=== PATIENT | female | born 1975 | race Caucasian/White ===

== ENCOUNTER → 2016-08-09 | Outpatient (CLI) | payer BC ==
--- NOTE | 2016-08-11 08:05 | US ---
EXAMINATION TYPE: US transvaginal DATE OF EXAM: 08/09/2016 1:45 PM COMPARISON: NONE CLINICAL HISTORY: N92.1 METRORRHAGIA UNRELATED TO MENSTRUAL CYCLE. TECHNIQUE: Transvaginal (TV), as bladder was not full and patient stated scheduled for work today an d chose TV rather than TAUS Date of LMP: 07/08/2016 EXAM MEASUREMENTS: Uterus: 8.8 x 6.1 x 4.3cm Endometrial Stripe: 1.3cm Right Ovary: 4.3 x 3.7 x 3.6cm Left Ovary: 2.5 x 2.5 x 1.8cm Findings: 1. Uterus: Anteverted C Section scar is noted in ANG. Complex Nabothian cyst is present in CX = 0. 5 x 0.4 x 0.4cm. 2. Endometrium: unable to correlate thickness with LMP as patient stated has been on menses continu ally since 07/03/2016 3. Right Ovary: enlarged with large simple cyst = 3.5 x 3.0 x 3.2cm 4. Left Ovary: multifollicular wit largest = 1.0 x 1.1 x 0.7cm Spectral, color and waveform Doppler imaging shows good arterial and venous flow within the ovaries ; there is no evidence for ovarian torsion. 5. Bilateral Adnexa: wnl 6. Posterior cul-de-sac: wnl IMPRESSION: 1. Limited assessment of the endometrium is discussed above. Measures 1.3 cm and appears thickened. C orrelate clinically for endometrial pathology. 2. Simple appearing right ovarian cyst measuring 3.5 cm.
== END | disposition home or self-care (01) ==
LOC: RADUSWWP 13:03
PROVIDERS: ATTEND Family Medicine
DX: N83.201 Unspecified ovarian cyst, right side (principal); N92.1 Excessive and frequent menstruation with irregular cycle
CPT/HCPCS: 76830

== ENCOUNTER 2016-08-20 17:44 | Emergency (ER) | payer BC, OTHER ==
[2016-08-20 18:13] VITALS: BP 138/93; PULSE 78; RESP 17; TEMP 98.5
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
--- NOTE | 2016-08-20 19:22 | XR ---
EXAMINATION TYPE: XR chest 2V DATE OF EXAM: 08/20/2016 6:49 PM COMPARISON: 10/26/2015 HISTORY: Chest pain TECHNIQUE: Frontal and lateral views of the chest are obtained. FINDINGS: Heart and mediastinum are normal. Lungs are clear. Costophrenic angles are clear. There ar e no hilar masses. Bony thorax is intact. IMPRESSION: Normal chest. No change.
--- NOTE | 2016-08-20 19:23 | XR ---
EXAMINATION TYPE: XR foot limited RT DATE OF EXAM: 08/20/2016 6:49 PM COMPARISON: NONE HISTORY: Injury TECHNIQUE: 2 views FINDINGS: I see no fracture nor dislocation. Metatarsals are intact. There is a small Achilles calcan eal spur. There are no erosions. IMPRESSION: Mild calcaneal spurring. Otherwise negative exam.
== END 2016-08-20 19:32 | disposition home or self-care (01) ==
LOC: EC 17:44
DX: S20.219A Contusion of unspecified front wall of thorax, initial encounter (principal); W22.8XXA Striking against or struck by other objects, initial encounter; S93.501A Unspecified sprain of right great toe, initial encounter; W31.82XA Contact with other commercial machinery, initial encounter; Y99.0 Civilian activity done for income or pay; F32.9 Major depressive disorder, single episode, unspecified; Z79.899 Other long term (current) drug therapy; Z86.14 Personal history of Methicillin resistant Staphylococcus aureus infection; F17.200 Nicotine dependence, unspecified, uncomplicated; Z88.0 Allergy status to penicillin
CPT/HCPCS: 71020; 99283

== ENCOUNTER 2016-08-30 16:19 | Emergency (ER) | payer BC ==
[2016-08-30 16:27] VITALS: BP 132/85; PULSE 76; RESP 17; TEMP 97.2
[2016-08-30] MEDS ORDERED: ONDANSETRON ODT 4 MG TAB PO STA (17:04)
--- NOTE | 2016-08-30 17:09 | ED ---
General Adult HPI - General Chief complaint: Nausea/Vomiting/Diarrhea Stated complaint: Nausea Time Seen by Provider: 08/30/16 16:50 Source: patient, RN notes reviewed Mode of arrival: ambulatory Limitations: no limitations - History of Present Illness Initial comments: This is a 40-year-old female who presents with nausea that started last night. Patient states she's had 4 episodes of emesis since last night. Patient states her has the same symptoms at home. Patient has not had an episode of emesis since. Patient denies any hematemesis or hematochezia or hematuria. Patient denies any dysuria. Patient states she's had a mild case of diarrhea once since last night. Patient denies any abdominal pain. Patient denies any chance of being as she has had a tubal ligation. Patient denies any cough, congestion, or sore throat but admits to a mild headache. Patient attributes her headache to a lack of caffeine today. Patient has been drinking fluids. Patient denies any recent fever, chills, shortness breath, chest pain, back pain, numbness, tingling, hematuria, or visual changes, or any other complaints. - Related Data Home Medications Medication Instructions Recorded Confirmed ARIPiprazole [Abilify] 2.5 mg PO DAILY 09/13/14 08/20/16 Citalopram Hydrobromide [CeleXA] 20 mg PO DAILY 09/13/14 08/20/16 Dextroamphetamine/Amphetamine 30 mg PO BID 08/20/16 08/20/16 [Adderall] Previous Rx's Medication Instructions Recorded Ibuprofen [Motrin] 600 mg PO Q6HR PRN #20 tab 08/20/16 Ondansetron Odt [Zofran Odt] 4 mg PO Q8H 3 Days 08/30/16 Sulfamethox-Tmp 800-160Mg [Bactrim 1 tab PO Q12HR #28 tab 08/30/16 DS 800-160 mg] Allergies Allergy/AdvReac Type Severity Reaction Status Date / Time Penicillins AdvReac Itching Verified 08/20/16 18:21 Review of Systems ROS Statement: Those systems with pertinent positive or pertinent negative responses have been documented in the HPI. ROS Other: All systems not noted in ROS Statement are negative. Past Medical History Past Medical History: No Reported History History of Any Multi-Drug Resistant Organisms: MRSA Date of last positivie culture/infection: 2009 MDRO Source:: neck Past Surgical History: Section Past Psychological History: Bipolar, Depression Smoking Status: Current every day smoker Past Alcohol Use History: Occasional Past Drug Use History: None Reported General Exam - General Exam Comments Initial Comments: General: The patient is awake and alert, in no distress, and does not appear acutely ill. Eye: Pupils are equal, round and reactive to light, extra-ocular movements are intact. No nystagmus. There is normal conjunctiva bilaterally. No signs of icterus. Ears: TMs pink and pearly with intact cone of light bilaterally. Normal external ear canals Nose: Nasal turbinates pink and moist Mouth and throat: There are moist mucous membranes and no oral lesions. Neck: The neck is supple, there is no tenderness or JVD. Cardiovascular: There is a regular rate and rhythm. No murmur, rub or gallop is appreciated. Respiratory: Lungs are clear to auscultation, respirations are non-labored, breath sounds are equal. No wheezes, stridor, rales, or rhonchi. Gastrointestinal: Mild discomfort to palpation of the suprapubic area. Soft, non -distended, abdomen without masses or organomegaly noted. There is no rebound or guarding present. No CVA tenderness. Bowel sounds are unremarkable. Musculoskeletal: Normal ROM, no tenderness. Strength 5/5. Sensation intact. Radial Pulses equal bilaterally 2+. Neurological: A&O x 3. CN II-XII intact, There are no obvious motor or sensory deficits. Coordination appears grossly intact. Speech is normal. Skin: Skin is warm and dry and no rashes or lesions are noted. Psychiatric: Cooperative, appropriate mood & affect, normal judgment. Limitations: no limitations Course Vital Signs 08/30/16 16:24 Temperature 97.2 F L Pulse Rate 76 Respiratory 17 Rate Blood Pressure 132/85 O2 Sat by Pulse 97 Oximetry Medical Decision Making - Medical Decision Making This is an 31yo female who presents with nausea that started last night. On physical exam patient is afebrile in the EC. Mild discomfort to palpation of the suprapubic area. Abdomen is soft, nondistended with no CVA tenderness. No rebound guarding or rigidity. A UA was checked. An influenza was checked and was negative. Patient was given Zofran in the EC today. Patient was feeling much better after Zofran. Urinalysis was positive for urinary tract infection. Blood was noted in the urine and with further questioning patient states she is currently finishing up her menstrual cycle. Patient denies any flank pain or back pain. Discussed that patient would be put on a course of Bactrim. I discussed that patient should drink plenty of fluids. Discussed return parameters. Tylenol or Motrin for any pain. Discussed patient will be given a prescription for Zofran. Discussed that patient should follow up with PCP in one to 2 days or return to the EC for any worsening symptoms or for any further concerns. Patient was receptive to this plan and patient will be discharged home. - Lab Data Lab Results 08/30/16 08/30/16 Range/Units 17:04 17:04 Urine Color Yellow Urine Appearance Cloudy H (Clear) Urine pH 7.0 (5.0-8.0) Ur Specific [place] 1.016 (1.001-1.035) Urine Protein Negative (Negative) Urine Glucose (UA) Negative (Negative) Urine Ketones Negative (Negative) Urine Blood Moderate H (Negative) Urine Nitrate Negative (Negative) Urine Bilirubin Negative (Negative) Urine Urobilinogen <2.0 (<2.0) mg/dL Ur Leukocyte Esterase Large H (Negative) Urine RBC 5 (0-5) /hpf Urine WBC 40 H (0-5) /hpf Ur Squamous Epith Cells 9 H (0-4) /hpf Urine Sperm Rare (None) /hpf Influenza Type A RNA Not Detected (Not Detectd) Influenza Type B (PCR) Not Detected (Not Detectd) Disposition Clinical Impression: Nausea & vomiting, Urinary tract infection Disposition: HOME SELF-CARE Condition: Good Instructions: Acute Nausea and Vomiting (ED), Urinary Tract Infection in Women (ED) Additional Instructions: Please use Zofran as prescribed. Please finish entire course of antibiotics. Please drink plenty of fluids. Please follow-up with family doctor in the next 2 days of symptoms have not improved. Please return to emergency room if the symptoms increase or worsen or for any other concerns. Prescriptions: Ondansetron Odt [Zofran Odt] 4 mg PO Q8H 3 Days Sulfamethox-Tmp 800-160Mg [Bactrim DS 800-160 mg] 1 tab PO Q12HR #28 tab Referrals: Josh Lau MD [Primary Care Provider] - 1-2 days Time of Disposition: 17:58
[2016-08-30 17:47] LABS: Appearance,Urine Cloudy (Clear); Bilirubin,Urine Negative (Negative); Glucose,Urine (UA) Negative (Negative); Ketones,Urine Negative (Negative); Leukocyte Esterase,Urine Large (Negative); Nitrite,Urine Negative (Negative); Particle Count 4544; Protein,Urine Negative (Negative); RBC,Urine 5 /hpf (0-5); Specific Gravity,Urine 1.016 (1.001-1.035); Sperm,Urine Rare /hpf; Squamous Epithelial Cell,Urine 9 /hpf (0-4); UA Billing (MACRO vs. MICRO) MICRO; Urobilinogen,Urine <2.0 mg/dL (<2.0); WBC,Urine 40 /hpf (0-5)
== END 2016-08-30 18:06 | disposition home or self-care (01) ==
LOC: EC 16:19
DX: N39.0 Urinary tract infection, site not specified (principal); R11.2 Nausea with vomiting, unspecified; F31.9 Bipolar disorder, unspecified; F17.200 Nicotine dependence, unspecified, uncomplicated; Z88.0 Allergy status to penicillin; Z86.14 Personal history of Methicillin resistant Staphylococcus aureus infection; Z79.899 Other long term (current) drug therapy
CPT/HCPCS: 81001; 87086; 87502; 99284

== ENCOUNTER 2016-09-09 15:18 | Observation (INO) | payer BC ==
[2016-09-09 16:44] LABS: Anion Gap 10 mmol/L; Blood Urea Nitrogen 14 mg/dL (7-17); Calcium 9.2 mg/dL (8.4-10.2); Carbon Dioxide 28 mmol/L (22-30); Chloride 104 mmol/L (98-107); Glucose 78 mg/dL (74-99); Non-African American GFR(MDRD) >60 (>60 ml/min/1.73 sqM); Sodium 142 mmol/L (137-145)
[2016-09-09 16:47] LABS: Basophils % (A) 0 %; CH 31.2; Eosinophils # (A) 0.3 k/uL (0-0.7); Eosinophils % (A) 3 %; HCT 39.7 % (34.0-46.0); Luc # (Auto) 0.11; Luc % (Auto) 1; Lymphocytes # (A) 1.7 k/uL (1.0-4.8); Lymphocytes % (A) 20 %; MCH 31.1 pg (25.0-35.0); MCHC 32.7 g/dL (31.0-37.0); MCV 95.3 fL (80.0-100.0); Mean Platelet Volume 8.3; Monocytes # (A) 0.4 k/uL (0-1.0); Monocytes % (A) 4 %; Neutrophils # (A) 6.1 k/uL (1.3-7.7); Neutrophils % (A) 71 %; RBC 4.16 m/uL (3.80-5.40); RDW 14.1 % (11.5-15.5); WBC 8.6 k/uL (3.8-10.6); WBC (Perox) 9.14
[2016-09-09 17:09] VITALS: BMI 32.3
[2016-09-09] MEDS ORDERED: ACETAMINOPHEN TAB 500 MG TAB PO PRN (19:33)
[2016-09-09] MEDS: HYDROmorphone 1 MG/ML 1 ML SYRINGE IVP PRN (21:10)
[2016-09-09] MEDS: NICOTINE 14MG/24HR PATCH TRANSDERM SCH (21:39)
[2016-09-09] MEDS: ARIPiprazole 5 MG TAB PO SCH (22:34)
[2016-09-09] MEDS: CITALOPRAM HYDROBROMIDE 20 MG TAB PO SCH (22:34)
[2016-09-10] MEDS: HYDROcodone/APAP 5-325MG 1 EACH TAB PO PRN ×2 (00:40→20:21)
[2016-09-10] MEDS: HYDROmorphone 1 MG/ML 1 ML SYRINGE IVP PRN ×2 (03:04→08:51)
[2016-09-10] MEDS: CITALOPRAM HYDROBROMIDE 20 MG TAB PO SCH ×2 (08:51→20:08)
[2016-09-10] MEDS: NICOTINE 14MG/24HR PATCH TRANSDERM SCH (08:51)
[2016-09-10] MEDS ORDERED: NON-FORMULARY DRUG (Dextroamphetamine/Amphetamine [Adderall] 30 MG) PO SCH (09:00)
[2016-09-10 09:18] LABS: Basophils % (A) 1 %; CH 30.8; CHCM 32.8; Eosinophils # (A) 0.2 k/uL (0-0.7); Eosinophils % (A) 4 %; HCT 35.6 % (34.0-46.0); HDW 3.01; HGB 11.6 gm/dL (11.4-16.0); Luc % (Auto) 2; Lymphocytes % (A) 37 %; MCH 30.8 pg (25.0-35.0); MCHC 32.6 g/dL (31.0-37.0); MCV 94.6 fL (80.0-100.0); Monocytes # (A) 0.2 k/uL (0-1.0); Monocytes % (A) 4 %; Neutrophils # (A) 2.8 k/uL (1.3-7.7); Neutrophils % (A) 52 %; RBC 3.76 m/uL (3.80-5.40); RDW 14.2 % (11.5-15.5); WBC 5.3 k/uL (3.8-10.6); WBC (Perox) 5.35
[2016-09-10 09:41] LABS: ALT 34 U/L (9-52); AST 22 U/L (14-36); Alkaline Phosphatase 49 U/L (38-126); Anion Gap 9 mmol/L; Blood Urea Nitrogen 14 mg/dL (7-17); Calcium 8.1 mg/dL (8.4-10.2); Carbon Dioxide 26 mmol/L (22-30); Chloride 104 mmol/L (98-107); Glucose 125 mg/dL (74-99); Non-African American GFR(MDRD) >60 (>60 ml/min/1.73 sqM); Potassium 3.2 mmol/L (3.5-5.1); Sodium 139 mmol/L (137-145); Total Bilirubin 0.3 mg/dL (0.2-1.3); Total Protein 5.7 g/dL (6.3-8.2)
--- NOTE | 2016-09-10 14:44 | P.PN ---
Subjective 40-year-old female being seen in the observation unit. Patient was a direct admission from Dr. Sheppard's office on the . Patient states is being seen in the office for "intense abdominal pain points to the bilateral lower abdomen " also having heavy menses with blood clots onset for the past several months" patient denies any prior episodes. States that she was seen in the office and advised to be admitted and worked up for the above-mentioned symptoms. Currently the PeriPad is dry no evidence of vaginal bleeding. Patient states the vaginal bleeding occurs when she stands up passing clots causing intense cramping interfering with work" hemoglobin on admission 13 repeat hemoglobin 11.6 patient also states that she had an ultrasound within the last month for the above-mentioned symptoms. Patient has poor past medical history recall. Patient's past medical history significant for bipolar depressive disorder. Patient states the pain in her abdomen is unbearable. Reviewing computerized record indicates that in August 09 2016 patient did have an ultrasound reviewing the report it showed a simple appearing right ovarian cyst measuring 3.5 cm and the limited assessment of the endometnium Objective - Vital Signs Vital signs: Vital Signs Temp 97.6 F 09/10/16 07:42 Pulse 59 L 09/10/16 12:29 Resp 18 09/10/16 12:29 BP 107/70 09/10/16 07:42 Pulse Ox 96 09/10/16 07:42 Intake & Output 09/09/16 09/10/16 09/10/16 18:59 06:59 18:59 Intake Total 480 Balance 480 Weight 85.5 kg Intake: Oral 480 Other: # Voids 1 2 - Exam GENERAL APPEARANCE: 40-year-old female patient is alert, oriented, in no acute distress. VITAL SIGNS: Reviewed HEENT: Head is normocephalic and atraumatic. Pupils are equal and reactive. The nares are patent. Oropharynx is clear without lesions. NECK: Supple without lymphadenopathy. Traches midline. HEART: S1, S2. Regular rate and rhythm. Denying chest pain LUNGS: No crackles or wheezes are heard. Adequate air movement ABDOMEN: Soft, nontender, nondistended with good bowel sounds. No peritoneal signs. No palpable organomegaly or masses. No active vaginal bleeding noted no frequent stooling denies any burning on urination not able to elicit any facial grimacing with palpitation to the abdominal wall EXTREMITIES: Normal skin color and turgor. No cyanosis, rash, ulceration, clubbing or edema. Radial pedal pulses are 2/4 bilaterally. NEUROLOGICAL: No focal deficits. Strength and sensation are grossly intact. - Labs CBC & Chem 7: 09/10/16 09:01 09/10/16 09:01 Labs: Abnormal Lab Results - Last 24 Hours (Table) 09/10/16 09/10/16 Range/Units 09:01 09:01 RBC 3.76 L (3.80-5.40) m/uL Potassium 3.2 L (3.5-5.1) mmol/L Glucose 125 H (74-99) mg/dL Calcium 8.1 L (8.4-10.2) mg/dL Total Protein 5.7 L (6.3-8.2) g/dL Albumin 3.2 L (3.5-5.0) g/dL Assessment and Plan Plan: Impression Present on admission abdominal pain with vaginal bleeding unclear etiology Depressive anxiety disorder nonspecified A mood disorder suspect bipolar 08/09/2016 vaginal ultrasound done showing a simple appearing right ovarian cyst measuring 3.5 cm Current Every day smoker Obesity BMI 32 Plan Surgical consultation pending [employer] vaginal bleeding pending Resume home meds as appropriate Follow up on the ultrasound of the abdomen pending Continue with the nicotine patch as ordered Patient's been advised to stop smoking cigarettes Further recommendations pending The above dictated assessment and findings were discussed with dr silver Soto and the plan of care have been dictated as directed. Anel Garibay nurse practitioner acting as a scribe for dr sheppard
[2016-09-10] MEDS ORDERED: HYDROmorphone 1 MG/ML 1 ML SYRINGE IVP PRN (14:45)
[2016-09-10] MEDS ORDERED: SODIUM CHLORIDE 0.9% 1,000 ML IV SCH (14:45)
--- NOTE | 2016-09-10 15:27 | P.HPIM ---
History of Present Illness H&P Date: 09/09/16 Chief Complaint: Abdominal pain vaginal bleeding heavy menses A 40-year-old female who was a direct admission from Dr. Sheppard's office on September 09. Patient was being seen in the office for chief complaint of developing abdominal pain bilateral lower quadrants with heavy menses onset 2 months prior reportedly has become more symptomatic interfering with activities of daily life. Patient stated that she had an vaginal ultrasound done in the outpatient setting as part of a workup for the heavy menses this was done in July 2016. Patient is not certain of what the findings were. Reviewing computerized medical records indicate on August 09 2016 ultrasound vaginally showed a simple appearing right ovarian cyst measuring 3.5 cm. Patient also states that she has not had prior episodes of having heavy vaginal. Patient gives no significant past surgical history when questioning. Additionally patient states she has not been to an [employer]. Her last was 8 years ago according to the patient was uneventful. Patient states prior to the last several months her periods had been normal with a normal vaginal flow patient states that she stands up she feels like she could pass clots with a lot of vaginal bleeding hemoglobin on admission was 13. Review of Systems Essentially unremarkable except as mentioned in the present illness Past Medical History Past Medical History: No Reported History Additional Past Medical History / Comment(s): VAGINAL BLEEDING SINCE , ULTRASOUND DONE AND SHOWED CYST History of Any Multi-Drug Resistant Organisms: MRSA Date of last positivie culture/infection: 2009 MDRO Source:: neck Past Surgical History: Section Past Anesthesia/Blood Transfusion Reactions: No Reported Reaction Past Psychological History: Bipolar, Depression Smoking Status: Current every day smoker Past Alcohol Use History: Occasional Past Drug Use History: None Reported Medications and Allergies Home Medications Medication Instructions Recorded Confirmed Type ARIPiprazole [Abilify] 2.5 mg PO HS 09/13/14 09/09/16 History Citalopram Hydrobromide [CeleXA] 20 mg PO BID 09/13/14 09/09/16 History Dextroamphetamine/Amphetamine 30 mg PO BID 08/20/16 09/09/16 History [Adderall] Allergies Allergy/AdvReac Type Severity Reaction Status Date / Time Penicillins Allergy Itching Verified 09/09/16 20:11 Physical Exam Vitals: Vital Signs Temp Pulse Resp BP Pulse Ox 09/10/16 12:29 59 L 18 09/10/16 08:00 59 L 18 09/10/16 07:42 97.6 F 59 L 18 107/70 96 09/10/16 05:29 16 09/10/16 03:55 97.8 F 53 L 16 114/68 96 09/10/16 00:00 16 09/09/16 19:53 98.3 F 81 16 124/71 97 09/09/16 15:51 97.8 F 81 18 137/100 100 Intake and Output 09/10/16 09/10/16 09/10/16 06:59 14:59 22:59 Intake Total 480 Balance 480 Intake: Oral 480 Other: # Voids 1 2 GENERAL APPEARANCE: 40-year-old female patient is alert, oriented, in no acute distress. Resting in bed appears well-hydrated nontoxic VITAL SIGNS: Reviewed afebrile HEENT: Head is normocephalic and atraumatic. Pupils are equal and reactive. The nares are patent. Oropharynx is clear without lesions. NECK: Supple without lymphadenopathy. Traches midline. HEART: S1, S2. Regular rate and rhythm. No murmur noted denying chest pain LUNGS: No crackles or wheezes are heard. Adequate air movement bilaterally on room air sats are 96% no cough ABDOMEN: Soft, obese nontender, nondistended with good bowel sounds. No peritoneal signs. No palpable organomegaly or masses. No facial grimacing with palpitation to the abdominal wall Genitals no vaginal bleeding noted no swelling noted no vaginal discharge noted EXTREMITIES: Normal skin color and turgor. No cyanosis, rash, ulceration, clubbing or edema. Radial pedal pulses are 2/4 bilaterally. NEUROLOGICAL: No focal deficits. Strength and sensation are grossly intact. Results CBC & Chem 7: 09/10/16 09:01 09/10/16 09:01 Labs: Abnormal Lab Results - Last 24 Hours (Table) 09/10/16 09/10/16 Range/Units 09:01 09:01 RBC 3.76 L (3.80-5.40) m/uL Potassium 3.2 L (3.5-5.1) mmol/L Glucose 125 H (74-99) mg/dL Calcium 8.1 L (8.4-10.2) mg/dL Total Protein 5.7 L (6.3-8.2) g/dL Albumin 3.2 L (3.5-5.0) g/dL Thrombosis Risk Factor Assmnt - Choose All That Apply Any of the Below Risk Factors Present?: No Other Risk Factors: No Other congenital or acquired thrombophilia - If yes, enter type in comment: No Thrombosis Risk Factor Assessment Level: Very Low Risk Assessment and Plan Plan: Impression Present on admission bilateral lower abdominal pain with vaginal bleeding unclear etiology Depressive anxiety disorder nonspecified A mood disorder suspect bipolar 08/09/2016 vaginal ultrasound done showing a simple appearing right ovarian cyst measuring 3.5 cm Current Every day smoker Obesity BMI 32 Plan Surgical consultation pending [employer] vaginal bleeding pending Resume home meds as appropriate Follow up on the ultrasound of the abdomen pending Continue with the nicotine patch as ordered Patient's been advised to stop smoking cigarettes Further recommendations pending The above dictated assessment and findings were discussed with dr silver Soto and the plan of care have been dictated as directed. Anel Garibay nurse practitioner acting as a scribe for dr sheppard
--- NOTE | 2016-09-10 15:30 | P.GSCN ---
History of Present Illness Consult date: 09/09/16 Reason for Consult: Abdominal pain Requesting physician: Josh Lau History of present illness: Patient is a 40-year-old female referred from Dr. Josh Lau for abdominal pain. Patient states that she's had right lower quadrant pain for the last 3 months increased in intensity over the last 4-5 days. Patient describes pain as sharp, intermittent, and radiating to her back. Patient currently rates pain 6 out of 10. Patient also reports abnormal vaginal bleeding 3 months. Patient states that she underwent a transvaginal ultrasound and Dr. Lau's office on August 09 that showed evidence of a right ovarian cyst with evidence of thickened lining of the uterus. Patient was instructed to follow-up with [facility] but states she has been unable to book an appointment. Patient denies recent fevers, chills, nausea, vomiting, shortness of breath, or chest pain. Patient states she has had 2 C-sections and tubal ligation in the past. Patient denies constipation or diarrhea. No history of melena or hematochezia. Afebrile. Blood pressure 107/70. No evidence of leukocytosis. Hemoglobin stable at 11.6. Past Medical History Past Medical History: No Reported History Additional Past Medical History / Comment(s): VAGINAL BLEEDING SINCE , ULTRASOUND DONE AND SHOWED CYST History of Any Multi-Drug Resistant Organisms: MRSA Year Discovered:: 2009 MDRO Source:: neck Past Surgical History: Section Past Anesthesia/Blood Transfusion Reactions: No Reported Reaction Past Psychological History: Bipolar, Depression Smoking Status: Current every day smoker Past Alcohol Use History: Occasional Past Drug Use History: None Reported Medications and Allergies Home Medications Medication Instructions Recorded Confirmed Type ARIPiprazole [Abilify] 2.5 mg PO HS 09/13/14 09/09/16 History Citalopram Hydrobromide [CeleXA] 20 mg PO BID 09/13/14 09/09/16 History Dextroamphetamine/Amphetamine 30 mg PO BID 08/20/16 09/09/16 History [Adderall] Allergies Allergy/AdvReac Type Severity Reaction Status Date / Time Penicillins Allergy Itching Verified 09/09/16 20:11 Surgical - Exam Vital Signs Temp Pulse Resp BP Pulse Ox 97.8 F 81 18 137/100 100 09/09/16 15:51 09/09/16 15:51 09/09/16 15:51 09/09/16 15:51 09/09/16 15:51 GENERAL: Pt awake and alert, lying in bed, well-nourished, and in no acute distress. HEAD: Atraumatic, normocephalic. EYES: Pupils equal and round. Sclera anicteric, conjunctiva are normal. ENT: Moist mucous membranes. NECK: Supple without lymphadenopathy or JVD. LUNGS: Breath sounds clear to auscultation bilaterally. No wheezes, rales, or rhonchi. HEART: Heart S1, S2, no S3 or S4. Regular rate and rhythm. No murmurs, rubs or gallops. ABDOMEN: Soft, right lower quadrant tenderness, nondistended, normoactive bowel sounds. No peritoneal signs. EXTREMITIES: Palpable peripheral pulses. No edema. No calf tenderness. NEUROLOGICAL: Pt oriented x 3. No focal deficits. Strength and sensation grossly intact. PSYCH: Normal mood, normal affect. SKIN: Warm, dry, intact. Normal turgor. Results - Labs 09/10/16 09:01 09/10/16 09:01 Abnormal Lab Results - Last 24 Hours (Table) 09/10/16 09/10/16 Range/Units 09:01 09:01 RBC 3.76 L (3.80-5.40) m/uL Potassium 3.2 L (3.5-5.1) mmol/L Glucose 125 H (74-99) mg/dL Calcium 8.1 L (8.4-10.2) mg/dL Total Protein 5.7 L (6.3-8.2) g/dL Albumin 3.2 L (3.5-5.0) g/dL Diabetes panel 09/09/16 09/10/16 Range/Units 16:20 09:01 Sodium 142 139 (137-145) mmol/L Potassium 4.0 3.2 L (3.5-5.1) mmol/L Chloride 104 104 (98-107) mmol/L Carbon Dioxide 28 26 (22-30) mmol/L BUN 14 14 (7-17) mg/dL Creatinine 0.61 0.56 (0.52-1.04) mg/dL Glucose 78 125 H (74-99) mg/dL Calcium 9.2 8.1 L (8.4-10.2) mg/dL AST 22 (14-36) U/L ALT 34 (9-52) U/L Alkaline Phosphatase 49 (38-126) U/L Total Protein 5.7 L (6.3-8.2) g/dL Albumin 3.2 L (3.5-5.0) g/dL Calcium panel 09/09/16 09/10/16 Range/Units 16:20 09:01 Calcium 9.2 8.1 L (8.4-10.2) mg/dL Albumin 3.2 L (3.5-5.0) g/dL Pituitary panel 09/09/16 09/10/16 Range/Units 16:20 09:01 Sodium 142 139 (137-145) mmol/L Potassium 4.0 3.2 L (3.5-5.1) mmol/L Chloride 104 104 (98-107) mmol/L Carbon Dioxide 28 26 (22-30) mmol/L BUN 14 14 (7-17) mg/dL Creatinine 0.61 0.56 (0.52-1.04) mg/dL Glucose 78 125 H (74-99) mg/dL Calcium 9.2 8.1 L (8.4-10.2) mg/dL Adrenal panel 09/09/16 09/10/16 Range/Units 16:20 09:01 Sodium 142 139 (137-145) mmol/L Potassium 4.0 3.2 L (3.5-5.1) mmol/L Chloride 104 104 (98-107) mmol/L Carbon Dioxide 28 26 (22-30) mmol/L BUN 14 14 (7-17) mg/dL Creatinine 0.61 0.56 (0.52-1.04) mg/dL Glucose 78 125 H (74-99) mg/dL Calcium 9.2 8.1 L (8.4-10.2) mg/dL Total Bilirubin 0.3 (0.2-1.3) mg/dL AST 22 (14-36) U/L ALT 34 (9-52) U/L Alkaline Phosphatase 49 (38-126) U/L Total Protein 5.7 L (6.3-8.2) g/dL Albumin 3.2 L (3.5-5.0) g/dL Assessment and Plan Plan: Impression: 1. Right lower quadrant abdominal pain. 2. History of dysmenorrhea for 3 months. 3. History of right ovarian cyst per patient history. Plan: 1. Continue to monitor patient. Await [facility] input. Patient is on a surgical candidate at this time. The above impression and plan have been discussed and directed by Dr. Jackson. Hugo NARVAEZ acting as scribe for Dr. Jackson.
--- NOTE | 2016-09-10 17:51 | US ---
EXAMINATION TYPE: US abdomen complete DATE OF EXAM: 09/10/2016 3:47 PM COMPARISON: NONE CLINICAL HISTORY: 40-year-old female with abdominal pain. TECHNIQUE: Multiple sonographic images of the abdomen were obtained. FINDINGS: Liver Length: 17.8 cm Gallbladder Wall: 0.3 cm CBD: 4.5 mm Spleen: 13.9 cm Right Kidney: 11.3 x 5.2 x 4.5 cm Left Kidney: 11.0 x 5.6 x 5.7 cm Pancreas: echogenic, tail not seen due to overlying bowel gas, main pancreatic duct- 2.2 mm Liver: Mildly enlarged and somewhat echogenic. No focal lesion seen. Gallbladder: No abnormal gallbladder distention, wall thickening, pericholecystic fluid, or shadowin g calculi. Evidence for sonographic Vuong's sign: neg CHD: Within normal limits. Spleen: Borderline enlarged. Right Kidney: There is mild pelvicaliectasis. Left Kidney: There is mild pelvicaliectasis. Upper IVC: Within normal limits. Abd Aorta: mid Aorta not seen due to overlying bowel gas IMPRESSION: 1. Mild hepatomegaly and suspected mild hepatic steatosis. Correlate with LFTs, lipid profile, and pa tient risk factors. 2. Mild bilateral pelvicaliectasis/hydronephrosis.
--- NOTE | 2016-09-10 17:54 | US ---
EXAMINATION TYPE: US pelvis complete transvag DATE OF EXAM: 09/10/2016 5:19 PM COMPARISON: on PACS CLINICAL HISTORY: 40-year-old female with abdominal pain and history of a right ovarian simple cyst, irregular bleeding. Date of LMP: 05/2016, TECHNIQUE: Transvaginal (TV) and Transabdominal (TA) FINDINGS: Uterus: Anteverted measuring 9.0 x 4.4 x 3.9 cm. A 6 mm cervical nabothian cyst is demonstrated. Endometrial Stripe: 0.9 cm, within normal limits. Right Ovary: 4.1 x 2.5 x 2.1 cm for a volume of 11.0 mL with follicular change. Left Ovary: 3.0 x 2.0 x 1.6 cm for a volume of 5.0 mL with follicular change. There is trace right adnexal free fluid adjacent to the ovary. Otherwise, no evident adnexal abnormality or cul-de-sac free fluid. IMPRESSION: 1. Endometrial stripe now measuring 9 mm, within normal limits. 2. Follicular change in both ovaries. Previous 3.5 cm right ovarian cyst has resolved. 3. Trace pelvic free fluid adjacent to the right ovary likely physiologic.
[2016-09-10] MEDS: ARIPiprazole 5 MG TAB PO SCH (20:08)
[2016-09-10] MEDS ORDERED: FAMOTIDINE 20 MG TAB PO SCH (21:00)
[2016-09-11] MEDS: HYDROcodone/APAP 5-325MG 1 EACH TAB PO PRN ×2 (03:26→08:18)
[2016-09-11] MEDS: NICOTINE 14MG/24HR PATCH TRANSDERM SCH (03:28)
[2016-09-11 07:15] LABS: Basophils % (A) 0 %; CH 30.8; CHCM 33.7; Eosinophils # (A) 0.2 k/uL (0-0.7); Eosinophils % (A) 3 %; HCT 36.9 % (34.0-46.0); HDW 3.06; HGB 12.3 gm/dL (11.4-16.0); Luc # (Auto) 0.08; Luc % (Auto) 1; Lymphocytes # (A) 2.1 k/uL (1.0-4.8); Lymphocytes % (A) 29 %; MCH 30.8 pg (25.0-35.0); MCHC 33.4 g/dL (31.0-37.0); MCV 92.2 fL (80.0-100.0); Mean Platelet Volume 7.1; Monocytes # (A) 0.3 k/uL (0-1.0); Monocytes % (A) 4 %; Neutrophils # (A) 4.5 k/uL (1.3-7.7); Neutrophils % (A) 62 %; RDW 14.1 % (11.5-15.5); WBC 7.2 k/uL (3.8-10.6); WBC (Perox) 7.84
[2016-09-11 07:36] LABS: ALT 34 U/L (9-52); AST 27 U/L (14-36); Alkaline Phosphatase 55 U/L (38-126); Anion Gap 8 mmol/L; Blood Urea Nitrogen 11 mg/dL (7-17); Calcium 8.6 mg/dL (8.4-10.2); Carbon Dioxide 25 mmol/L (22-30); Chloride 108 mmol/L (98-107); Glucose 79 mg/dL (74-99); Non-African American GFR(MDRD) >60 (>60 ml/min/1.73 sqM); Potassium 4.4 mmol/L (3.5-5.1); Sodium 141 mmol/L (137-145); Total Bilirubin 0.4 mg/dL (0.2-1.3); Total Protein 5.7 g/dL (6.3-8.2)
--- NOTE | 2016-09-11 07:55 | P.OBCN ---
History of Present Illness Consult date: 09/11/16 Requesting physician: Josh Lau Reason for consult: menorrhagia, pelvic pain Chief complaint: Prolonged vaginal bleeding, right lower quadrant pain History of present illness: This is a 40-year-old female 7 para [id number] who presented with complaints of worsening pelvic pain more so on the right side and continued vaginal bleeding. She states her vaginal bleeding started approximate 3 months ago and never stopped. She states she has bleeding all the time and its worse when she goes from lying down to sitting up and then she gets gushes of blood. She states this has slowed down over the last week. She has been bleeding since approximate May. She stated her right lower quadrant abdominal pain began approximately a month ago and was worse over the last week. It is better now that she is laying in the bed in the hospital, but still present. She did have an ultrasound approximate month ago that showed a ovarian cyst on her right ovary measuring approximately 3.5 cm with simple appearance. Her endometrial thickness at that time was 1.3 cm which was slightly thickened. Otherwise her uterus and her left tube and ovary looked normal. Her current ultrasound done yesterday showed no ovarian cysts and a small amount of fluid around the right ovary along with a normal endometrial thickness of 0.9 cm. Obstetrical history: . She has a history of 3 vaginal deliveries followed by 2 sections. She did have a tubal ligation with her last section. Gynecologic history: No history of sexually transmitted diseases. She states her last Pap smear was normal and at least 2 or 3 years ago. She does have a history of an abnormal Pap smear many years ago but a biopsy was done and was benign. She has had a tubal ligation. Social history: She is single and states she had a boyfriend but she thinks he left her while she was in the hospital. 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 Review of Systems Gastrointestinal: Reports abdominal pain, Denies nausea, Denies vomiting Genitourinary: Reports abnormal vaginal bleeding, Reports menorrhagia, Reports pelvic pain (Right lower quadrant) Menstruation: Reports menses 8 or > days, Reports period heavy Past Medical History Past Medical History: No Reported History Additional Past Medical History / Comment(s): VAGINAL BLEEDING SINCE 17, ULTRASOUND DONE AND SHOWED CYST History of Any Multi-Drug Resistant Organisms: MRSA Year Discovered:: 2009 MDRO Source:: neck Past Surgical History: Section (2), Tubal Ligation Past Anesthesia/Blood Transfusion Reactions: No Reported Reaction Past Psychological History: Bipolar, Depression Smoking Status: Current every day smoker Past Alcohol Use History: Occasional Past Drug Use History: None Reported - Past Family History Mother Additional Family Medical History / Comment(s): Schizophrenia Medications and Allergies Home Medications Medication Instructions Recorded Confirmed Type ARIPiprazole [Abilify] 2.5 mg PO HS 09/13/14 09/09/16 History Citalopram Hydrobromide [CeleXA] 20 mg PO BID 09/13/14 09/09/16 History Dextroamphetamine/Amphetamine 30 mg PO BID 08/20/16 09/09/16 History [Adderall] Allergies Allergy/AdvReac Type Severity Reaction Status Date / Time Penicillins Allergy Itching Verified 09/09/16 20:11 Exam Osteopathic Statement: *. No significant issues noted on an osteopathic structural exam other than those noted in the History and Physical/Consult. - Vital Signs Vital signs: Vital Signs Temp Pulse Resp BP BP Pulse Ox 09/11/16 04:00 98.1 F 57 L 16 134/79 96 09/11/16 00:00 16 09/10/16 20:00 16 09/10/16 19:32 98.0 F 57 L 16 94/56 97 09/10/16 16:00 98.0 F 57 L 18 138/85 97 09/10/16 12:29 59 L 18 09/10/16 08:00 59 L 18 Intake and Output 09/10/16 09/11/16 09/11/16 22:59 06:59 14:59 Intake Total 480 Balance 480 Intake: Oral 480 Other: # Voids 1 1 Weight 85.5 kg - OBG Physical Exam Abdomen: no diffuse tenderness, no mass Abdomen detail: right lower quadrant: tenderness (Mild tenderness noted in the right lower quadrant) Pelvic exam is deferred to the office due to recent ultrasound findings. Lisa- pad shows very scant blood. Results Result Diagrams: 09/11/16 06:41 09/11/16 06:41 Abnormal Lab Results - Last 24 Hours (Table) 09/10/16 09/10/16 09/11/16 Range/Units 09:01 09:01 06:41 RBC 3.76 L (3.80-5.40) m/uL Potassium 3.2 L (3.5-5.1) mmol/L Chloride 108 H (98-107) mmol/L Glucose 125 H (74-99) mg/dL Calcium 8.1 L (8.4-10.2) mg/dL Total Protein 5.7 L 5.7 L (6.3-8.2) g/dL Albumin 3.2 L 3.1 L (3.5-5.0) g/dL Comments: Pelvic ultrasound shows uterus measuring 9.0 x 4.4 x 3.9 cm with endometrial thickness of 0.9 cm. No ovarian cysts were noted. There was a small amount of free fluid near the right ovary. Assessment and Plan (1) Menorrhagia with irregular cycle Status: Acute (2) Pelvic pain Status: Acute Plan: The patient was advised that the recent ultrasound findings. She states her right lower quadrant pain is better than it was when she came in but not gone. She stated it is tolerable at this point. I have advised her that I can give her Provera 10 mg daily for 10 days to stop her bleeding. She is aware that she will have another period after she and the Provera, however this will hopefully get her cycles back on track. There is no need for surgery at this point from a gynecologic standpoint I have advised her to schedule a yearly appointment in my office and we will go over her whole history and possibly schedule an outpatient dilation and curettage if she continues to have bleeding. She did state she called my office earlier to make an appointment but did not make an appointment because she could not get in until October. I have advised her to still make her appointment for her yearly in October and keep it bleeding diary in the meantime. Thank very much for this consultation.
[2016-09-11 08:03] VITALS: BP 163/77; PULSE 64; RESP 18; TEMP 97.5
[2016-09-11] MEDS: CITALOPRAM HYDROBROMIDE 20 MG TAB PO SCH (08:10)
--- NOTE | 2016-09-11 10:08 | P.DS ---
Providers Date of admission: 09/09/16 15:27 Expected date of discharge: 09/11/16 Attending physician: Josh Lau Consults: 09/09/16 21:49 Consult Physician Routine Consulting Provider: Naina Rayo Consult Reason/Comments: Pain and prolonged vaginal bleeding. Do you want consulting provider notified?: Yes, Notify in am 09/09/16 23:54 Consult Physician Routine Consulting Provider: Iggy Jackson Consult Reason/Comments: abdominal pain Do you want consulting provider notified?: Yes, Notify in am Primary care physician: Josh [facility] Course: A 40-year-old female who was a direct admission from Dr. Lau's office on September 09. Patient was being seen in the office for chief complaint of developing abdominal pain bilateral lower quadrants with heavy menses onset 2 months prior reportedly has become more symptomatic interfering with activities of daily life. Patient stated that she had an vaginal ultrasound done in the outpatient setting as part of a workup for the heavy menses this was done in July 2016. Patient is not certain of what the findings were. Reviewing computerized medical records indicate on August 09 2016 ultrasound vaginally showed a simple appearing right ovarian cyst measuring 3.5 cm. Patient also states that she has not had prior episodes of having heavy vaginal. Patient gives no significant past surgical history when questioning. Additionally patient states she has not been to an [facility]. Her last was 8 years ago according to the patient was uneventful. Patient states prior to the last several months her periods had been normal with a normal vaginal flow patient states that she stands up she feels like she could pass clots with a lot of vaginal bleeding hemoglobin on admission was 13. A surgical consultation was requested who indicated there was no surgical intervention at this time a nonsurgical abdomen [employer] [facility] [facility] patient was seen by Dr. Rayo reviewed the pelvic ultrasound small amount of free fluid near the right ovary no ovarian cyst. Patient's indicating the right lower quadrant pain is better than when she came in but not gone. The recommending that she call the office the TAPE MAKING MACHINE OPERATOR make an appointment TAPE MAKING MACHINE OPERATOR advised patient to schedule yearly appointment and neuropathy they'll go over her history and possibly schedule an outpatient D&C if she continues to have bleeding. There is recommending the patient be on Provera this will hopefully get her cycles back on track. Patient was felt to be hemodynamically stable and appropriate proceed with a discharge to home Impression discharge diagnosis Menorrhagia with irregular cycle present on admission pelvic pain acute Present on admission bilateral lower abdominal pain with vaginal bleeding . Depressive anxiety disorder nonspecified A mood disorder suspect bipolar 08/09/2016 vaginal ultrasound done showing a simple appearing right ovarian cyst measuring 3.5 cm Current Every day smoker Obesity BMI 32 The above dictated assessment and findings were discussed with Dr. Lau Impression and the plan of care have been dictated as directed. Anel Garibay nurse practitioner acting as a scribe for Dr. Lau Plan - Discharge Summary New Discharge Prescriptions: medroxyPROGESTERone [Provera] 10 mg PO DAILY #40 tablet Discharge Medication List ARIPiprazole [Abilify] 2.5 mg PO HS 09/13/14 [History] Citalopram Hydrobromide [CeleXA] 20 mg PO BID 09/13/14 [History] Dextroamphetamine/Amphetamine [Adderall] 30 mg PO BID 08/20/16 [History] medroxyPROGESTERone [Provera] 10 mg PO DAILY #40 tablet 09/11/16 [Rx] Follow up Appointment(s)/Referral(s): Naina Rayo DO [Doctor of Osteopathic Medicine] - 4 Weeks Josh Lau MD [Primary Care Provider] - 1 Week Activity/Diet/Wound Care/Special Instructions: Smoking cessation information to be provided patient's been advised to stop smoking cigarettes Discharge Disposition: HOME SELF-CARE
== END 2016-09-11 10:40 | disposition home or self-care (01) ==
LOC: 3OBS 15:27
PROVIDERS: ADMIT Family Medicine; ATTEND Family Medicine
DX: N92.1 Excessive and frequent menstruation with irregular cycle (principal); R10.2 Pelvic and perineal pain; F41.9 Anxiety disorder, unspecified; N83.201 Unspecified ovarian cyst, right side; E66.9 Obesity, unspecified; F17.210 Nicotine dependence, cigarettes, uncomplicated; Z68.32 Body mass index [BMI] 32.0-32.9, adult; F31.9 Bipolar disorder, unspecified; Z79.899 Other long term (current) drug therapy; Z88.0 Allergy status to penicillin
CPT/HCPCS: 80053 ×2; 80048; 85025 ×3; 81025; 76700; 76856; 76830; G0378 ×3; G0379; S4990 ×3; J1170 ×2; 96374; 96376

== ENCOUNTER 2017-11-18 21:52 | Emergency (ER) | payer OTHER ==
[2017-11-18 22:07] VITALS: BP 139/83; PULSE 95; RESP 18; TEMP 98.5
--- NOTE | 2017-11-18 22:29 | ED ---
ENT HPI - General Chief complaint: ENT Stated complaint: swollen throat Time Seen by Provider: 11/18/17 22:13 Source: patient, RN notes reviewed, old records reviewed Mode of arrival: ambulatory Limitations: no limitations - History of Present Illness Initial comments: 42-year-old female presents today to complete of sore throat for the past week.. She denies any dental pain but does have some broken teeth. She's concerned because her lymphnodes of been very swollen and her neck. Reports mild fevers often on. Complains of sinus congestion. She also reports that she has some lesions over her face.Patient denies any chest pain, shortness of breath, nausea, vomiting, abdominal pain, headache, changes in urination or Bowel habits - Related Data Home Medications Medication Instructions Recorded Confirmed ARIPiprazole [Abilify] 2.5 mg PO HS 09/13/14 09/09/16 Citalopram Hydrobromide [CeleXA] 20 mg PO BID 09/13/14 09/09/16 Dextroamphetamine/Amphetamine 30 mg PO BID 08/20/16 09/09/16 [Adderall] ARIPiprazole [Abilify] 2.5 mg PO DAILY 11/18/17 11/18/17 Albuterol Sulfate [Proair Hfa] 1 - 2 puff INHALATION RT-Q6H PRN 11/18/17 Citalopram Hydrobromide [CeleXA] 20 mg PO DAILY 11/18/17 11/18/17 Dextroamphetamine/Amphetamine 30 mg PO BID 11/18/17 11/18/17 [Adderall] Unknown Medication 50 mg PO DAILY 11/18/17 11/18/17 Previous Rx's Medication Instructions Recorded medroxyPROGESTERone [Provera] 10 mg PO DAILY #40 tablet 09/11/16 Cephalexin [Keflex] 500 mg PO Q8HR #30 cap 11/18/17 Allergies Allergy/AdvReac Type Severity Reaction Status Date / Time Penicillins Allergy Itching Verified 09/09/16 20:11 Review of Systems ROS Statement: Those systems with pertinent positive or pertinent negative responses have been documented in the HPI. ROS Other: All systems not noted in ROS Statement are negative. Past Medical History Past Medical History: No Reported History History of Any Multi-Drug Resistant Organisms: MRSA Date of last positivie culture/infection: 2010 MDRO Source:: neck Past Surgical History: Section Past Psychological History: Depression Smoking Status: Current every day smoker Past Alcohol Use History: Occasional Past Drug Use History: None Reported - Past Family History Mother Additional Family Medical History / Comment(s): Schizophrenia General Exam - General Exam Comments Initial Comments: 42 yeharlan kaur female, no distress. Limitations: no limitations General appearance: alert, in no apparent distress Head exam: Present: atraumatic, normocephalic, normal inspection Eye exam: Present: normal appearance, PERRL, EOMI. Absent: scleral icterus, conjunctival injection, periorbital swelling ENT exam: Present: normal exam, mucous membranes moist, other (small oimple lesions over face, chin, and cheeks. ). Absent: normal oropharynx (erythema) Neck exam: Present: normal inspection, lymphadenopathy (tender tonsilar and anterior cervical lymphadenopathy..). Absent: tenderness, meningismus Respiratory exam: Present: normal lung sounds bilaterally. Absent: respiratory distress, wheezes, rales, rhonchi, stridor Cardiovascular Exam: Present: regular rate, normal rhythm, normal heart sounds. Absent: systolic murmur, diastolic murmur, rubs, gallop, clicks GI/Abdominal exam: Present: soft, normal bowel sounds. Absent: distended, tenderness, guarding, rebound, rigid Neurological exam: Present: alert, oriented X3, CN II-XII intact Psychiatric exam: Present: normal affect, normal mood Course Vital Signs 11/18/17 22:03 Temperature 98.5 F Pulse Rate 95 Respiratory 18 Rate Blood Pressure 139/83 O2 Sat by Pulse 99 Oximetry Medical Decision Making - Medical Decision Making 42-year-old female presents today to complete of sore throat for the past week.. She denies any dental pain but does have some broken teeth. She's concerned because her lymphnodes of been very swollen and her neck. Reports mild fevers often on. Complains of sinus congestion. Patient has tender adenopathy, and erythematous oropharynx. Discussed OTC sinus medications.Will place patient on keflex, allergic to penicillin for sinus infection and pharyngitis. All questions answered and return parameters discussed. Disposition Clinical Impression: Pharyngitis, Cervical adenopathy Disposition: HOME SELF-CARE Condition: Good Instructions: Nosebleed (ED) Additional Instructions: Patient advised to follow-up with primary care provider. Take the meds, and return to ED if any alarming sign or symptoms occur. Prescriptions: Cephalexin [Keflex] 500 mg PO Q8HR #30 cap Is patient prescribed a controlled substance at d/c from ED?: No If prescribed controlled substance>3 days was MAPS reviewed?: No When asked, does pt state using other controlled substances?: No Referrals: Josh Lau MD [Primary Care Provider] - 1-2 days Time of Disposition: 22:27
== END 2017-11-18 22:49 | disposition home or self-care (01) ==
LOC: EC 21:52 → MERGE 21:52 → EC 22:49
DX: J02.9 Acute pharyngitis, unspecified (principal); J32.9 Chronic sinusitis, unspecified; S02.5XXA Fracture of tooth (traumatic), initial encounter for closed fracture; R23.8 Other skin changes; F32.9 Major depressive disorder, single episode, unspecified; F17.200 Nicotine dependence, unspecified, uncomplicated; Z79.899 Other long term (current) drug therapy; Z88.0 Allergy status to penicillin; Z86.14 Personal history of Methicillin resistant Staphylococcus aureus infection; X58.XXXA Exposure to other specified factors, initial encounter
CPT/HCPCS: 99283

== ENCOUNTER 2017-12-10 18:51 | Emergency (ER) | payer OTHER ==
[2017-12-10 19:08] VITALS: TEMP 99.4
[2017-12-10] MEDS ORDERED: SODIUM CHLORIDE 0.9% 1,000 ML IV ONE ×2 (19:34)
[2017-12-10] MEDS ORDERED: KETOROLAC 30 MG/ML 1 ML VIAL IVP STA (19:35)
[2017-12-10] MEDS ORDERED: ORPHENADRINE 30 MG/ML 2 ML VIAL IVP STA (19:35)
--- NOTE | 2017-12-10 19:37 | ED ---
Female Urogenital HPI - General Chief complaint: Vaginal Bleeding Stated complaint: Vaginal Bleeding Time Seen by Provider: 12/10/17 19:27 Source: patient, RN notes reviewed, old records reviewed Mode of arrival: ambulatory Limitations: no limitations - History of Present Illness Initial comments: This patient's a 42-year-old female chief complaint of lower abdominal pain and heavy menstrual bleeding for the past 3 weeks. Patient states she was seen by her primary care provider and urged to come to the emergency department earlier today. She states that she's been tired and fatigued. She reports that she's been taking Motrin. Denies any urinary symptoms, denies any changes in stools. Denies any fever or chills. Patient states that she has not seen an [employer]. Patient ports that she's been going through multiple pads and tampons. - Related Data Home Medications Medication Instructions Recorded Confirmed ARIPiprazole [Abilify] 2.5 mg PO HS 09/13/14 12/10/17 Albuterol Sulfate [Proair Hfa] 1 - 2 puff INHALATION RT-Q6H PRN 11/18/17 Dextroamphetamine/Amphetamine 30 mg PO BID 11/18/17 12/10/17 [Adderall] Desvenlafaxine Succinate [Pristiq] 50 mg PO DAILY 12/10/17 12/10/17 Previous Rx's Medication Instructions Recorded traMADol HCL [Ultram] 50 mg PO Q6HR PRN 3 Days #12 tab 12/10/17 Allergies Allergy/AdvReac Type Severity Reaction Status Date / Time Penicillins Allergy Itching Verified 12/10/17 19:57 Review of Systems ROS Statement: Those systems with pertinent positive or pertinent negative responses have been documented in the HPI. ROS Other: All systems not noted in ROS Statement are negative. Past Medical History Past Medical History: No Reported History Additional Past Medical History / Comment(s): VAGINAL BLEEDING SINCE , ULTRASOUND DONE AND SHOWED CYST History of Any Multi-Drug Resistant Organisms: MRSA Date of last positivie culture/infection: 2010 MDRO Source:: neck Past Surgical History: Section, Tubal Ligation Past Anesthesia/Blood Transfusion Reactions: No Reported Reaction Past Psychological History: Bipolar, Depression Smoking Status: Current every day smoker Past Alcohol Use History: Rare Past Drug Use History: None Reported - Past Family History Mother Additional Family Medical History / Comment(s): Schizophrenia General Exam - General Exam Comments Initial Comments: 42-year-old female. Alert and oriented. No significant distress. Limitations: no limitations General appearance: alert, in no apparent distress Head exam: Present: atraumatic, normocephalic, normal inspection Eye exam: Present: normal appearance, PERRL, EOMI. Absent: scleral icterus, conjunctival injection, periorbital swelling ENT exam: Present: normal exam, mucous membranes moist Neck exam: Present: normal inspection. Absent: tenderness, meningismus, lymphadenopathy Respiratory exam: Present: normal lung sounds bilaterally. Absent: respiratory distress, wheezes, rales, rhonchi, stridor Cardiovascular Exam: Present: regular rate, normal rhythm, normal heart sounds. Absent: systolic murmur, diastolic murmur, rubs, gallop, clicks GI/Abdominal exam: Present: soft, tenderness (Pelvic tenderness.), normal bowel sounds. Absent: distended, guarding, rebound, rigid Extremities exam: Present: normal inspection, full ROM, normal capillary refill. Absent: tenderness, pedal edema, joint swelling, calf tenderness Back exam: Present: normal inspection Neurological exam: Present: alert, oriented X3, CN II-XII intact Psychiatric exam: Present: normal affect, normal mood Skin exam: Present: warm, dry, intact, normal color. Absent: rash Course Vital Signs 12/10/17 19:04 Temperature 99.4 F Pulse Rate 83 Respiratory 18 Rate Blood Pressure 141/88 O2 Sat by Pulse 95 Oximetry Medical Decision Making - Medical Decision Making 42-year-old female presents emergency with lower abdominal pain cramping. She states she's been having heavy bleeding for the past 2 weeks. Sent in by PCP for further evaluation. At this time patient's hemoglobin is stable at 12.1. Ultrasound of the pelvis completed. She has no significant thickening or fibroids. There is a right ovarian cyst. Patient does not have an [employer]. Patient informed of all his results. I discussed that she can follow-up with her primary care provider again and [employer]. All questions answered return parameters were discussed. - Lab Data Result diagrams: 12/10/17 19:21 12/10/17 19:21 Lab Results 12/10/17 12/10/17 12/10/17 Range/Units 19:21 19:21 19:21 WBC 6.8 (3.8-10.6) k/uL RBC 4.14 (3.80-5.40) m/uL Hgb 12.1 (11.4-16.0) gm/dL Hct 36.4 (34.0-46.0) % MCV 87.9 (80.0-100.0) fL MCH 29.3 (25.0-35.0) pg MCHC 33.4 (31.0-37.0) g/dL RDW 15.0 (11.5-15.5) % Plt Count 325 (150-450) k/uL Neutrophils % 55 % Lymphocytes % 35 % Monocytes % 5 % Eosinophils % 3 % Basophils % 1 % Neutrophils # 3.7 (1.3-7.7) k/uL Lymphocytes # 2.3 (1.0-4.8) k/uL Monocytes # 0.4 (0-1.0) k/uL Eosinophils # 0.2 (0-0.7) k/uL Basophils # 0.0 (0-0.2) k/uL PT (9.0-12.0) sec INR (<1.2) APTT (22.0-30.0) sec Sodium 142 (137-145) mmol/L Potassium 4.3 (3.5-5.1) mmol/L Chloride 108 H (98-107) mmol/L Carbon Dioxide 23 (22-30) mmol/L Anion Gap 11 mmol/L BUN 16 (7-17) mg/dL Creatinine 0.57 (0.52-1.04) mg/dL Est GFR (CKD-EPI)AfAm >90 (>60 ml/min/1.73 sqM) Est GFR (CKD-EPI)NonAf >90 (>60 ml/min/1.73 sqM) Glucose 102 H (74-99) mg/dL Calcium 9.2 (8.4-10.2) mg/dL Total Bilirubin 0.3 (0.2-1.3) mg/dL AST 28 (14-36) U/L ALT 35 (9-52) U/L Alkaline Phosphatase 65 (38-126) U/L Total Protein 6.4 (6.3-8.2) g/dL Albumin 3.9 (3.5-5.0) g/dL Urine HCG, Qual Not Detected (Not Detectd) Blood Type Blood Type Recheck Antibody Screen Spec Expiration Date 12/10/17 12/10/17 Range/Units 19:21 19:21 WBC (3.8-10.6) k/uL RBC (3.80-5.40) m/uL Hgb (11.4-16.0) gm/dL Hct (34.0-46.0) % MCV (80.0-100.0) fL MCH (25.0-35.0) pg MCHC (31.0-37.0) g/dL RDW (11.5-15.5) % Plt Count (150-450) k/uL Neutrophils % % Lymphocytes % % Monocytes % % Eosinophils % % Basophils % % Neutrophils # (1.3-7.7) k/uL Lymphocytes # (1.0-4.8) k/uL Monocytes # (0-1.0) k/uL Eosinophils # (0-0.7) k/uL Basophils # (0-0.2) k/uL PT 9.5 (9.0-12.0) sec INR 1.0 (<1.2) APTT 23.7 (22.0-30.0) sec Sodium (137-145) mmol/L Potassium (3.5-5.1) mmol/L Chloride (98-107) mmol/L Carbon Dioxide (22-30) mmol/L Anion Gap mmol/L BUN (7-17) mg/dL Creatinine (0.52-1.04) mg/dL Est GFR (CKD-EPI)AfAm (>60 ml/min/1.73 sqM) Est GFR (CKD-EPI)NonAf (>60 ml/min/1.73 sqM) Glucose (74-99) mg/dL Calcium (8.4-10.2) mg/dL Total Bilirubin (0.2-1.3) mg/dL AST (14-36) U/L ALT (9-52) U/L Alkaline Phosphatase (38-126) U/L Total Protein (6.3-8.2) g/dL Albumin (3.5-5.0) g/dL Urine HCG, Qual (Not Detectd) Blood Type A Positive Blood Type Recheck No Antibody Screen NEGATIVE Spec Expiration Date 12/13/2017 - 2321 - Radiology Data Radiology results: report reviewed Simple appearing right ovarian cyst measuring 3.37 m. Follow-up following the Mental. Her 6 weeks is recommended. Uterus is a 0.4 x 4.1 x 4.8 cm. Disposition Clinical Impression: Menorrhagia, Pelvic pain Disposition: HOME SELF-CARE Condition: Good Instructions: Dysmenorrhea (ED) Additional Instructions: Patient has follow-up with primary care provider. And [employer]. Return to emergency department if any alarming signs or symptoms occur. Prescriptions: traMADol HCL [Ultram] 50 mg PO Q6HR PRN 3 Days #12 tab PRN Reason: Pain Is patient prescribed a controlled substance at d/c from ED?: No When asked, does pt state using other controlled substances?: No If prescribed controlled substance>3 days was MAPS reviewed?: No If opioid is for acute pain is fill amount 7 days or less?: No If Rx opioid, was Start Talking consent form obtained?: No Referrals: Josh Lau MD [Primary Care Provider] - 1-2 days Katheryn Lee MD [STAFF PHYSICIAN] - 1-2 days Time of Disposition: 20:53
[2017-12-10 19:57] LABS: Basophils % (A) 1 %; Eosinophils # (A) 0.2 k/uL (0-0.7); Eosinophils % (A) 3 %; HCT 36.4 % (34.0-46.0); HGB 12.1 gm/dL (11.4-16.0); Lymphocytes # (A) 2.3 k/uL (1.0-4.8); Lymphocytes % (A) 35 %; MCH 29.3 pg (25.0-35.0); MCHC 33.4 g/dL (31.0-37.0); MCV 87.9 fL (80.0-100.0); Mean Platelet Volume 6.7; Monocytes # (A) 0.4 k/uL (0-1.0); Monocytes % (A) 5 %; Neutrophils # (A) 3.7 k/uL (1.3-7.7); Neutrophils % (A) 55 %; Platelet Count 325 k/uL (150-450); RBC 4.14 m/uL (3.80-5.40); WBC 6.8 k/uL (3.8-10.6)
[2017-12-10 20:09] LABS: ALT 35 U/L (9-52); AST 28 U/L (14-36); Albumin 3.9 g/dL (3.5-5.0); Alkaline Phosphatase 65 U/L (38-126); Anion Gap 11 mmol/L; Blood Urea Nitrogen 16 mg/dL (7-17); Calcium 9.2 mg/dL (8.4-10.2); Carbon Dioxide 23 mmol/L (22-30); Chloride 108 mmol/L (98-107); Glucose 102 mg/dL (74-99); Potassium 4.3 mmol/L (3.5-5.1); Sodium 142 mmol/L (137-145); Total Bilirubin 0.3 mg/dL (0.2-1.3); Total Protein 6.4 g/dL (6.3-8.2)
[2017-12-10 20:13] LABS: Prothrombin Time 9.5 sec (9.0-12.0)
[2017-12-10 20:14] LABS: Partial Thromboplastin Time 23.7 sec (22.0-30.0)
--- NOTE | 2017-12-10 20:40 | US ---
EXAMINATION TYPE: US transvaginal DATE OF EXAM: 12/10/2017 COMPARISON: NONE CLINICAL HISTORY: pain. Bleeding x 3 weeks. TECHNIQUE: Transvaginal (TV). EXAM MEASUREMENTS: Uterus: 8.4 x 4.1 x 4.8 cm Endometrial Stripe: 0.9 cm Right Ovary: 4..8 x 3.6 x 3.8 cm Left Ovary: 2.4 x 1.5 x 2.4 cm 1. Uterus: Anteverted Nabothian cysts seen 2. Endometrium: wnl 3. Right Ovary: Cystic area seen measuring 3.5 x 3.3 x 2.8 cm 4. Left Ovary: wnl Spectral, color and waveform doppler imaging shows good arterial and venous flow within the ovaries ; there is no evidence for ovarian torsion. 5. Bilateral Adnexa: wnl 6. Posterior cul-de-sac: wnl Right ovarian cyst seen measuring 3.5 x 3.3 x 2.8 cm. IMPRESSION: 1. Simple appearing right ovarian cyst measuring approximately 3.3 cm. Follow-up following the next n ormal menstrual period or 6 weeks is recommended.
[2017-12-10 21:23] VITALS: BP 135/78; PULSE 58; RESP 15
[2017-12-10] MEDS ORDERED: MORPHINE SULFATE 2 MG/ML SYRINGE IVP ONE (21:24)
== END 2017-12-10 21:48 | disposition home or self-care (01) ==
LOC: EC 18:51
DX: N92.0 Excessive and frequent menstruation with regular cycle (principal); N83.201 Unspecified ovarian cyst, right side; F31.9 Bipolar disorder, unspecified; F41.9 Anxiety disorder, unspecified; F17.200 Nicotine dependence, unspecified, uncomplicated; Z86.14 Personal history of Methicillin resistant Staphylococcus aureus infection; Z79.899 Other long term (current) drug therapy; Z88.0 Allergy status to penicillin
CPT/HCPCS: 36415; 86900; 86901; 80053; 85025; 85610; 85730; 86850; 81025; 93975; 76830; 99285; 96374; 96375 ×2; 96361; J2360; J1885; J2270

== ENCOUNTER 2022-03-17 00:15 | Emergency (ER) | payer BC, OTHER ==
[2022-03-17 00:37] VITALS: BP 162/91; PULSE 74; TEMP 97.8
[2022-03-17] MEDS ORDERED: diazePAM 2 MG TAB PO STA ×2 (01:18→03:33)
[2022-03-17] MEDS ORDERED: KETOROLAC 15 MG/ML 1 ML VIAL IM STA (01:18)
--- NOTE | 2022-03-17 01:41 | ED ---
General Adult HPI - General Chief complaint: Neck Pain/Injury Stated complaint: Neck Pain and stiffness Time Seen by Provider: 03/17/22 01:05 Source: patient, RN notes reviewed, old records reviewed Mode of arrival: ambulatory Limitations: no limitations - History of Present Illness Initial comments: Patient is a 46-year-old female. No significant past medical history. Presents in the department complaining of bilateral neck pain. She has to carry a heavy backpack at a new job that she just started over the last week or so. She is also been sleeping on the ground at her mother's house rather than in the bed. Over this period of time, she has noticed tension a pulling sensation primarily over the right shoulder that radiates the muscles of her neck to the base of her skull on the right side and down towards her back. States it hurts with movement of the neck. Denies any midline spine bony pain. Denies any trauma. His concern she may have a muscle strain. Denies any lower extremity symptoms. Denies any weakness. She does endorse subjective paresthesias in the bilateral fingertips.. Denies chest pain, shortness breath, abdominal pain, nausea, vomiting. Presents for further evaluation at this time over concern for neck muscle strain. - Related Data Home Medications Medication Instructions Recorded Confirmed ARIPiprazole [Abilify] 2.5 mg PO HS 09/13/14 12/10/17 Albuterol Sulfate [Proair Hfa] 1 - 2 puff INHALATION RT-Q6H PRN 11/18/17 12/10/17 Dextroamphetamine/Amphetamine 30 mg PO BID 11/18/17 12/10/17 [Adderall] Desvenlafaxine Succinate [Pristiq] 50 mg PO DAILY 12/10/17 12/10/17 Previous Rx's Medication Instructions Recorded traMADol HCL [Ultram] 50 mg PO Q6HR PRN 3 Days #12 tab 12/10/17 Lidocaine 5% Patch [Lidoderm 5% 1 patch TOPICAL DAILY PRN 7 Days 03/17/22 Patch] #7 patch methocarbamoL [Robaxin-750] 750 mg PO BID PRN 7 Days #14 tab 03/17/22 Allergies Allergy/AdvReac Type Severity Reaction Status Date / Time Penicillins Allergy Itching Verified 12/10/17 19:57 Review of Systems ROS Statement: Those systems with pertinent positive or pertinent negative responses have been documented in the HPI. Review of Systems: CONST: Denies fever EYES: Denies blurry vision ENT: Denies nasal congestion C/V: Denies Chest pain RESP: Denies shortness of breath GI: Denies abdominal pain : Denies dysuria SKIN: Denies rash. MSK: Endorses neck muscle pain. NEURO: Denies headache ROS Other: All systems not noted in ROS Statement are negative. Past Medical History Past Medical History: No Reported History Additional Past Medical History / Comment(s): VAGINAL BLEEDING SINCE , ULTRASOUND DONE AND SHOWED CYST History of Any Multi-Drug Resistant Organisms: MRSA Date of last positivie culture/infection: 2010 MDRO Source:: neck Past Surgical History: Section, Tubal Ligation Past Anesthesia/Blood Transfusion Reactions: No Reported Reaction Past Psychological History: Bipolar, Depression Smoking Status: Current every day smoker Past Alcohol Use History: Rare Past Drug Use History: None Reported - Past Family History Mother Additional Family Medical History / Comment(s): Schizophrenia General Exam - General Exam Comments Initial Comments: General: Appears in mild distress secondary to pain in her neck. HEAD: Normal with no signs of head trauma. EYES: PERRLA, EOMI, conjunctiva normal, no discharge. ENT: Hearing grossly intact, normal oropharynx. RESPIRATORY: Clear breath sounds bilaterally. No wheezes, rales, or rhonchi. C/V: Regular rate and rhythm. S1 and S2 auscultated, no edema, peripheral pulses 2+ and intact throughout ABD: Abdomen is nondistended. EXT: Reduced range of motion the neck secondary to pain in the bilateral trapezius muscles. Patient is tenderness palpation along the trapezius muscles on both the right and left neck. Right appears to be worse than left. No midline cervical, thoracic, lumbar spine tenderness to palpation. SKIN: No rashes or lesions observed on exposed skin. NEURO: Alert and oriented 4. No focal sensory or strength deficits. Limitations: no limitations Course Vital Signs 03/17/22 00:31 Temperature 97.8 F Pulse Rate 74 Respiratory 16 Rate Blood Pressure 162/91 O2 Sat by Pulse 97 Oximetry Medical Decision Making - Medical Decision Making Based on the patient's presentation and physical exam, do believe she is likely experiencing a neck muscle strain. We'll obtain CT C-spine and treat her with oral Valium an IM Toradol. Vital signs are within normal limits. Patient was in agreement this plan. CT cervical spine shows mild degenerative hypertrophic changes. No fracture seen. On reevaluation, the patient's feeling somewhat improved. She'll be redosed another dose of Valium. We discussed her imaging. I will provide with prescriptions for home. She has a cervical/ trapezius strain. She was in agreement with this plan. I will provide the patient with a prescription for Robaxin, lidocaine patch. I instructed the patient to follow up with their PCP in the next 1-3 days. I explained that the patient should return to the emergency department if they experience any worsening symptoms. Strict return precautions were discussed with the patient. The patient expressed understanding of these instructions. I answered all questions that the patient had. The patient was discharged home in fair condition with their prescriptions and follow up information. Disposition Clinical Impression: Neck strain Disposition: HOME SELF-CARE Condition: Fair Instructions (If sedation given, give patient instructions): Cervical Strain (ED) Prescriptions: Lidocaine 5% Patch [Lidoderm 5% Patch] 1 patch TOPICAL DAILY PRN 7 Days #7 patch PRN Reason: Pain methocarbamoL [Robaxin-750] 750 mg PO BID PRN 7 Days #14 tab PRN Reason: Pain Is patient prescribed a controlled substance at d/c from ED?: No Referrals: Jamari Romano MD [Primary Care Provider] - 1-2 days Time of Disposition: 03:15
--- NOTE | 2022-03-17 02:05 | CT ---
EXAMINATION TYPE: CT cervical spine wo con DATE OF EXAM: 03/17/2022 COMPARISON: None HISTORY: Neck pain, no trauma CT DLP: 440.8 mGycm Automated exposure control for dose reduction was used. Images obtained from the skull base to T1 vertebra with no contrast. The cervical vertebrae show some mild straightening. Disc spaces are fairly normal. No compression fr acture. There is anterior spurring at C5-6. The facet joints are intact there is hypertrophic facet a rthropathy in the upper cervical spine. No evidence of focal bone destruction. IMPRESSION: Mild degenerative hypertrophic changes. No fracture seen.
[2022-03-17] MEDS ORDERED: ACET/COD 300 MG/30 MG STARTER PACK 6 TAB BTL PO STA (03:34)
[2022-03-17 04:19] VITALS: RESP 18
== END 2022-03-17 04:16 | disposition home or self-care (01) ==
LOC: EC 00:15
DX: S16.1XXA Strain of muscle, fascia and tendon at neck level, initial encounter (principal); F17.200 Nicotine dependence, unspecified, uncomplicated; Z88.0 Allergy status to penicillin; X58.XXXA Exposure to other specified factors, initial encounter
CPT/HCPCS: 72125; 99283; 96372; J1885